=== PATIENT | male | born 1955 | race Caucasian/White ===

== ENCOUNTER 2019-07-20 09:41 | Outpatient (CLI) | payer MEDICARE, MEDICAID, SELFPAY ==
[2019-07-20 10:14] LABS: Basophils % 0.8 %; Eosinophils # 0.1 10^3/uL (0.0-0.8); Eosinophils % 3.1 %; Hematocrit 38.6 % (42.0-52.0); Hemoglobin 12.9 g/dL (11.7-16.6); Lymphocytes # 1.5 10^3/uL (0.8-4.8); Lymphocytes % 38.4 %; Mean Corpuscular HGB Conc 33.4 g/dL (30.0-36.0); Mean Corpuscular Hemoglobin 32.7 pg (28.0-34.0); Mean Platelet Volume 10.3 fL (7.4-10.4); Monocytes # 0.6 10^3/uL (0.2-0.9); Monocytes % 14.4 %; Neutrophils # 1.7 10^3/uL (1.8-7.7); Nucleated Red Blood Cells % 0 %; Platelet Count 72 10^3/cmm (130-400); Red Blood Count 3.94 10^6/uL (4.1-5.3); Red Cell Distribution Width 12.9 % (12.1-15.1); White Blood Count 3.8 10^3/uL (4.0-10.0)
[2019-07-20 10:31] LABS: Alanine Aminotransferase 53 U/L (0-41); Albumin Level 4.9 g/dL (3.5-5.2); Alkaline Phosphatase 41 IU/L (40-130); Anion Gap 15.4 (5-19); Aspartate Amino Transferase 58 U/L (0-40); Blood Urea Nitrogen 12 mg/dL (8-23); Calcium 9.9 mg/dL (8.5-10.5); Carbon Dioxide 26 mmol/L (22-29); Chloride 94 mmol/L (98-107); Globulin 2.8 g/dL (1.3-4.6); Glomerular Filtration Rate 51.2 mL/min (90-130); Glucose 140 mg/dL (65-115); Lactate Dehydrogenase 171 U/L (135-225); Potassium 4.4 mmol/L (3.5-5.1); Sodium 131 mmol/L (136-145); Total Bilirubin 0.7 mg/dL (0.15-1.2); Total Protein 7.7 g/dL (6.6-8.7)
--- NOTE | 2019-07-21 06:43 | ONC FU_ITS ---
Dr. Aguilera Patient Follow-Up Note Patient: Carrillo Kothari Unit #: [id number]: 1955 Dicatated By: Thompson Aguilera M.D.Date of Visit:Jul 20, 2019 Onc Med Follow-up/Prog Note Chief Complaint: Thrombocytopenia. History of Present Illness: This is a 64 year-old man with a moderately severe thrombocytopenia. He was seen here by Dr. uBrks on 03/24/2018 for new onset of thrombocytopenia. The available records included a CBC from 01/24/2018 which showed his platelet count low at 33,000. His other laboratory studies also showed mild elevation of the liver enzymes. His further evaluation included a repeat CBC which showed hemoglobin 13.9 g with hematocrit 40.0%. The red cell indices were borderline high. The white blood cell count was mildly decreased at 3700. Platelet count was moderately decreased at 87,000. Comprehensive metabolic profile at that time showed borderline renal function with BUN 16 and creatinine 1.4 mg/dL. The bilirubin and liver enzymes were normal. B12 and folate levels were normal. 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 His other medical illnesses include hyperlipidemia, GERD, and chronic anxiety. He does have a history of having undergone repair of abdominal aortic aneurysm. He has a history of smoking 2 packs of cigarettes daily for 30 years. He quit smoking in 2009. INTERIM HISTORY: He had further evaluation with CT abdomen/pelvis on 05/05/2018. The liver appeared normal on that study, and there was no evidence of splenomegaly. There was also no lymphadenopathy or other evidence of malignancy. With those findings, I had recommended observation/expectant management. He is seen for a follow-up visit. He has been feeling okay. He says his energy could be better. His ECOG score is 1. He has good appetite. He has no fever or night sweats. He says he has sinus drainage all the time. He has some cough with it. He does not complain of shortness of breath or chest pain. He has some acid reflux. He has no other GI or complaints. He has pain in both legs, the left worse than the right. He also has swelling. He does not complain of headache. He does feel dizzy at times. He has no focal neurologic symptoms. Medications: Aspirin 1 Tablet (of 81 mg) Oral daily, Atenolol 1 Tablet (of 25 mg) Oral daily, [facility] Fish Oil 2 Capsule (of 1000 mg) Oral b.i.d., Lisinopril-Hydrochlorothiazide 1 Tablet (of 20-12.5 mg) Oral daily, Multivitamin Men 1 Tablet Oral daily, [place]-3 Fatty Acids 2 Capsule (of 1000 mg) Oral b.i.d., Pantoprazole Sodium 1 Tablet (of 40 mg) Tablet, enteric coated Oral daily, Rosuvastatin Calcium 1 Tablet (of 20 mg) Oral daily, Tamsulosin HCl 1 (0.4 mg) Capsule Oral at bedtime, ZyrTEC Allergy 1 Tablet (of 10 mg) Oral daily Allergies: Codeine Review of Systems: Constitutional - His energy is fair. His appetite is good and his weight is stable. No fever, chills, hot flashes. He has some sweating at night. ECOG score is 1, ENMT - He has sinus congestion/drainage with a cough. No mouth sores. No sore throat or difficulty swallowing, Hematologic/Lymphatic - No abnormal bruising or bleeding, Respiratory - No shortness of breath. No pleuritic pain or hemoptysis, Cardiovascular - No angina pain. No palpitations, Gastrointestinal - No nausea or vomiting. His heartburn is managed well with Protonix. No diarrhea or constipation. No blood in the stool or black stools, Genitourinary (M) - No dysuria or hematuria. No urinary frequency. No urgency or incontinence, Musculoskeletal - He has some swelling and pain in his legs, mainly his left, Integumentary - No skin complications, Neurologic - No headache. He does feel dizzy at times. No numbness/paresthesias or other focal neurologic symptoms, Psychiatric - No anxiety or depression. No insomnia. Vital Signs: Performed on Jul 20, 2019 12:09 Height - 71.00 in Weight - 215.6 lbs (HIGH) BSA - 2.18 sq.m BMI - 30.07 (HIGH) Temperature - 97.6 F (LOW) Pulse - 63 /min Respiration - 17 /min BP - 131/70 mm(hg) O2 Sat - 98 % Pain - 5 Physical Examination: Constitutional - He looks pretty good generally, Eyes - Sclerae nonicteric. Conjunctivae clear, ENMT - No lesions noted in the oral cavity, Hematologic/Lymphatic - No cervical, clavicular, or axillary adenopathy, Respiratory - Lungs are clear with good air movement bilaterally, Cardiovascular - Heart rhythm is regular. There is no murmur, gallop, or rub noted, Abdomen - Mildly distended but soft. Liver is not enlarged. Spleen is not palpable. There is no abdominal mass or ascites noted. There is no inguinal adenopathy, Extremities - There are mild venous stasis changes bilaterally. There is just slight edema. Dorsalis pedis pulses are palpable bilaterally, Neurologic - No focal neurologic deficits noted. Lab/Imaging: Test performed on Jul 20, 2019 10:03 LDH (Total) 171 U/L Sodium 131 mmol/L Potassium 4.4 mmol/L Chloride 94 mmol/L CO2 26 mmol/L Anion Gap 15.4 BUN 12 mg/dL Creatinine 1.4 mg/dL Cr Clearance (Est) 74.71 mL/min eGFR 51.2 mL/min Glucose 140 mg/dL Calcium 9.9 mg/dL Protein, Total 7.7 g/dL Albumin 4.9 g/dL Globulin 2.8 g/dL Bilirubin, Total 0.7 mg/dL ALT (SGPT) 53 U/L AST (SGOT) 58 U/L Alkaline Phosphatase 41 IU/L WBC 3.8 10 3/uL RBC 3.94 10 6/uL HGB 12.9 g/dL HCT 38.6 % MCV 98.0 fL MCH 32.7 pg MCHC 33.4 g/dL RDW 12.9 % Platelet Count 72 10 3/cmm MPV 10.3 fL Neutrophils 1.7 10 3/uL Lymphocytes 1.5 10 3/uL Monocytes 0.6 10 3/uL Eosinophils 0.1 10 3/uL Basophils 0.0 10 3/uL Neutrophil % 43.0 % Lymphocyte % 38.4 % Monocyte % 14.4 % Eosinophil % 3.1 % Basophils % 0.8 % Impression: 1. Patient with moderately severe thrombocytopenia. He also has had borderline low to mildly decreased white blood cell count and borderline macrocytic red blood cell indices. The most likely causes for this would be liver disease/hypersplenism or myelodysplastic syndrome. 2. He had mildly elevated liver enzymes, but with no abnormalities noted in the liver or spleen by ultrasound or by CT scan. 3. 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 4. There was CT evidence of a small right middle lobe pulmonary nodule. His other medical illnesses include: 5. Hyperlipidemia. 6. GERD. 7. He has chronic anxiety. 8. He has had previous abdominal aortic aneurysm repair. In the absence of any evidence of liver disease/hypersplenism, the most likely cause for the low blood counts would be a myelodysplastic syndrome. However, during follow-up his blood counts have remained stable and his clinical status also has been stable. He does have some ongoing problems related to venous stasis. Plan: He will continue on observation/expectant management. I will see him again in 6 months. In the meantime, I did give him the option to see physical therapy for the venous insufficiency. Signed By: Thompson Aguilera M.D. <<Signature on File>>
== END 2019-07-20 09:42 | disposition home or self-care (01) ==
LOC: ONCMED 09:46
PROVIDERS: Family Provider Family Medicine; PCP Family Medicine; Visit Provider Internal Medicine Medical Oncology
DX: D69.6 Thrombocytopenia, unspecified (principal); H54.8 Legal blindness, as defined in USA; H35.52 Pigmentary retinal dystrophy; E78.5 Hyperlipidemia, unspecified; K21.9 Gastro-esophageal reflux disease without esophagitis; F41.9 Anxiety disorder, unspecified; R91.8 Other nonspecific abnormal finding of lung field; I87.8 Other specified disorders of veins; Z79.82 Long term (current) use of aspirin; Z79.899 Other long term (current) drug therapy; Z87.891 Personal history of nicotine dependence
CPT/HCPCS: 36415; 80053; 83615; 85025; G0463

== ENCOUNTER 2019-12-21 09:45 | Outpatient (CLI) | payer MEDICARE, MEDICAID, SELFPAY ==
[2019-12-21 10:22] LABS: Basophils % 0.5 %; Eosinophils # 0.1 10^3/uL (0.0-0.8); Eosinophils % 2.4 %; Hematocrit 36.9 % (42.0-52.0); Hemoglobin 12.9 g/dL (11.7-16.6); Lymphocytes # 1.4 10^3/uL (0.8-4.8); Lymphocytes % 34.7 %; Mean Corpuscular Volume 94.4 fL (80-94); Mean Platelet Volume 9.4 fL (7.4-10.4); Monocytes # 0.6 10^3/uL (0.2-0.9); Monocytes % 14.4 %; Neutrophils # 1.95 10^3/uL (1.8-7.7); Neutrophils % 47.8 %; Nucleated Red Blood Cells % 0 %; Platelet Count 77 10^3/cmm (130-400); Red Blood Count 3.91 10^6/uL (4.1-5.3); Red Cell Distribution Width 12.7 % (12.1-15.1); White Blood Count 4.1 10^3/uL (4.0-10.0)
[2019-12-21 10:35] LABS: Alanine Aminotransferase 51 U/L (0-41); Albumin Level 5.2 g/dL (3.5-5.2); Alkaline Phosphatase 38 IU/L (40-130); Anion Gap 14.3 (5-19); Aspartate Amino Transferase 55 U/L (0-40); Blood Urea Nitrogen 19 mg/dL (8-23); Calcium 10.1 mg/dL (8.5-10.5); Carbon Dioxide 26 mmol/L (22-29); Chloride 91 mmol/L (98-107); Globulin 2.4 g/dL (1.3-4.6); Glomerular Filtration Rate 47.3 mL/min (90-130); Glucose 117 mg/dL (65-115); Lactate Dehydrogenase 167 U/L (135-225); Osmolality Calculated 262 mOsm/kg (285-295); Potassium 4.3 mmol/L (3.5-5.1); Sodium 127 mmol/L (136-145); Total Bilirubin 0.7 mg/dL (0.15-1.2); Total Protein 7.6 g/dL (6.6-8.7)
--- NOTE | 2019-12-25 12:07 | ONC FU_ITS ---
Dr. Aguilera Patient Follow-Up Note Patient: Carrillo Kothari Unit #: [id number]: 1955 Dicatated By: Thompson Aguilera M.D.Date of Visit:Dec 21, 2019 Onc Med Follow-up/Prog Note Chief Complaint: Thrombocytopenia. History of Present Illness: This is a 64 year-old man with a moderately severe thrombocytopenia. He was seen here by Dr. Burks on 03/24/2018 for new onset of thrombocytopenia. The available records included a CBC from 01/24/2018 which showed his platelet count low at 33,000. His other laboratory studies also showed mild elevation of the liver enzymes. His repeat CBC showed hemoglobin 13.9 g with hematocrit 40.0%. The red cell indices were borderline high. The white blood cell count was mildly decreased at 3700. Platelet count was moderately decreased at 87,000. Comprehensive metabolic profile at that time showed borderline renal function with BUN 16 and creatinine 1.4 mg/dL. The bilirubin and liver enzymes were normal. B12 and folate levels were normal. He had further evaluation with CT abdomen/pelvis on 05/05/2018. The liver appeared normal on that study, and there was no evidence of splenomegaly. There was also no lymphadenopathy or other evidence of malignancy. With those findings, I had recommended observation/expectant management. 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 His other medical illnesses include hyperlipidemia, GERD, and chronic anxiety. He does have a history of having undergone repair of abdominal aortic aneurysm. He has a history of smoking 2 packs of cigarettes daily for 30 years. He quit smoking in 2009. INTERIM HISTORY: He is seen for a follow-up visit. He has been feeling pretty good generally. His energy is about the same. He says it could be better. He has limited activity due to his visual impairment. ECOG score is 1. He has good appetite. He has no fever or night sweats. He has no shortness of breath, cough, or chest pain. He clearly has no GI or complaints. He has pain in his knees, but no other joint or bone pain. He has occasional headache, attributable to allergies, and he sometimes has dizziness. He has no focal neurologic symptoms. Medications: Aspirin 1 Tablet (of 81 mg) Oral daily, Atenolol 1 Tablet (of 25 mg) Oral daily, [facility] Fish Oil 2 Capsule (of 1000 mg) Oral b.i.d., Lisinopril-Hydrochlorothiazide 1 Tablet (of 20-12.5 mg) Oral daily, Multivitamin Men 1 Tablet Oral daily, [place]-3 Fatty Acids 2 Capsule (of 1000 mg) Oral b.i.d., Pantoprazole Sodium 1 Tablet (of 40 mg) Tablet, enteric coated Oral daily, Rosuvastatin Calcium 1 Tablet (of 20 mg) Oral daily, Tamsulosin HCl 1 (0.4 mg) Capsule Oral at bedtime, ZyrTEC Allergy 1 Tablet (of 10 mg) Oral daily Allergies: Codeine Review of Systems: Constitutional - His energy is the same. He says it could be better. Activity is limited due to his visual impairment. He has good appetite. He has no fever or night sweats. ECOG score is 1, ENMT - He always has sinus drainage. No mouth sores. No sore throat or difficulty swallowing, Hematologic/Lymphatic - No abnormal bruising or bleeding, Respiratory - No shortness of breath. No cough. No pleuritic pain or hemoptysis, Cardiovascular - No angina pain. No palpitations, Gastrointestinal - No nausea or vomiting. His acid reflux is adequately managed with medication. No diarrhea or constipation. No blood in the stool or black stools, Genitourinary (M) - No dysuria or hematuria. No urinary frequency. No urgency or incontinence, Musculoskeletal - He has pain in his knees. No other joint or bone pain, Integumentary - , Neurologic - He occasionally has headache and he sometimes has dizziness. No numbness or tingling. No other focal neurologic symptoms, Psychiatric - He has some depression. He does not sleep well. Vital Signs: Blood pressure 134/82, pulse 52, respirations 20, temp 98.0 degrees, oxygen saturation 100%. Weight is 214 pounds. Physical Examination: Constitutional - He looks pretty good generally, Eyes - Sclerae nonicteric. Conjunctivae clear, ENMT - No lesions noted in the oral cavity, Hematologic/Lymphatic - No cervical, clavicular, or axillary adenopathy, Respiratory - Lungs are clear with good air movement bilaterally, Cardiovascular - Heart rhythm is regular. There is no murmur, gallop, or rub noted, Abdomen - Mildly distended. Liver is not enlarged. Spleen is not palpable. There is no abdominal mass or ascites noted. There is no inguinal adenopathy, Extremities - No edema, Neurologic - No focal neurologic deficits noted. Lab/Imaging: Test performed on Dec 21, 2019 10:00 LDH (Total) 167 U/L Sodium 127 mmol/L Potassium 4.3 mmol/L Chloride 91 mmol/L CO2 26 mmol/L Anion Gap 14.3 BUN 19 mg/dL Creatinine 1.5 mg/dL Cr Clearance (Est) 69.7300 mL/min eGFR 47.3 mL/min Glucose 117 mg/dL Calcium 10.1 mg/dL Protein, Total 7.6 g/dL Albumin 5.2 g/dL Globulin 2.4 g/dL Bilirubin, Total 0.7 mg/dL ALT (SGPT) 51 U/L AST (SGOT) 55 U/L Alkaline Phosphatase 38 IU/L WBC 4.1 10 3/uL RBC 3.91 10 6/uL HGB 12.9 g/dL HCT 36.9 % MCV 94.4 fL MCH 33.0 pg MCHC 35.0 g/dL RDW 12.7 % Platelet Count 77 10 3/cmm MPV 9.4 fL Neutrophils 1.95 10 3/uL Lymphocytes 1.4 10 3/uL Monocytes 0.6 10 3/uL Eosinophils 0.1 10 3/uL Basophils 0.0 10 3/uL Neutrophil % 47.8 % Lymphocyte % 34.7 % Monocyte % 14.4 % Eosinophil % 2.4 % Basophils % 0.5 % NRBC % 0 % Impression: 1. Patient with moderately severe thrombocytopenia. He also has had borderline low to mildly decreased white blood cell count and borderline macrocytic red blood cell indices. The most likely causes for this would be liver disease/hypersplenism or myelodysplastic syndrome. 2. He had mildly elevated liver enzymes, but with no abnormalities noted in the liver or spleen by ultrasound or by CT scan. 3. 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 4. There was CT evidence of a small right middle lobe pulmonary nodule. His other medical illnesses include: 5. Hyperlipidemia. 6. GERD. 7. He has chronic anxiety. 8. He has had previous abdominal aortic aneurysm repair. As his other blood counts were normal and he was not overtly symptomatic, I had recommended observation/expectant management. Thus far during follow-up his blood counts and clinical status have remained stable. Plan: He continues observation/expectant management. I will see him again in 6 months. Signed By: Thompson Aguilera M.D. <<Signature on File>>
== END 2019-12-21 09:46 | disposition home or self-care (01) ==
LOC: ONCMED 09:50
PROVIDERS: Family Provider Family Medicine; PCP Family Medicine; Visit Provider Internal Medicine Medical Oncology
DX: D69.6 Thrombocytopenia, unspecified (principal); R94.5 Abnormal results of liver function studies; H35.52 Pigmentary retinal dystrophy; R91.1 Solitary pulmonary nodule; E78.5 Hyperlipidemia, unspecified; K21.9 Gastro-esophageal reflux disease without esophagitis; F41.9 Anxiety disorder, unspecified; Z86.79 Personal history of other diseases of the circulatory system
CPT/HCPCS: 80053; 83615; 85025; G0463

== ENCOUNTER 2020-06-20 10:25 | Outpatient (CLI) | payer MEDICARE, MEDICAID, SELFPAY ==
[2020-06-20 11:03] LABS: Basophils % 0.8 %; Eosinophils # 0.1 10^3/uL (0.0-0.8); Eosinophils % 1.9 %; Hematocrit 38.7 % (42.0-52.0); Lymphocytes # 1.4 10^3/uL (0.8-4.8); Mean Corpuscular HGB Conc 33.6 g/dL (30.0-36.0); Mean Corpuscular Hemoglobin 31.3 pg (28.0-34.0); Monocytes # 0.5 10^3/uL (0.2-0.9); Monocytes % 12.8 %; Neutrophils # 1.71 10^3/uL (1.8-7.7); Neutrophils % 46.5 %; Nucleated Red Blood Cells % 0 %; Platelet Count 71 10^3/cmm (130-400); Red Blood Count 4.16 10^6/uL (4.1-5.3); Red Cell Distribution Width 13.2 % (12.1-15.1); White Blood Count 3.7 10^3/uL (4.0-10.0)
[2020-06-20 11:14] LABS: Alanine Aminotransferase 47 U/L (0-41); Albumin Level 4.7 g/dL (3.5-5.2); Alkaline Phosphatase 46 IU/L (40-130); Anion Gap 14.4 (5-19); Aspartate Amino Transferase 45 U/L (0-40); Blood Urea Nitrogen 14 mg/dL (8-23); Calcium 9.7 mg/dL (8.5-10.5); Carbon Dioxide 28 mmol/L (22-29); Chloride 94 mmol/L (98-107); Globulin 2.6 g/dL (1.3-4.6); Glucose 125 mg/dL (65-115); Lactate Dehydrogenase 159 U/L (135-225); Osmolality Calculated 276 mOsm/kg (285-295); Potassium 4.4 mmol/L (3.5-5.1); Sodium 132 mmol/L (136-145); Total Bilirubin 0.6 mg/dL (0.15-1.2); Total Protein 7.3 g/dL (6.6-8.7)
--- NOTE | 2020-06-23 17:33 | ONC FU_ITS ---
Dr. Aguilera Patient Follow-Up Note Patient: Carrillo Kothari Unit #: [id number]: 1955 Dicatated By: Thompson Aguilera M.D.Date of Visit:Jun 20, 2020 Onc Med Follow-up/Prog Note Chief Complaint: Thrombocytopenia. History of Present Illness: This is a 65 year-old man with a moderately severe thrombocytopenia. He was seen here by Dr. Burks on 03/24/2018 for new onset of thrombocytopenia. The available records included a CBC from 01/24/2018 which showed his platelet count low at 33,000. His other laboratory studies also showed mild elevation of the liver enzymes. His repeat CBC showed hemoglobin 13.9 g with hematocrit 40.0%. The red cell indices were borderline high. The white blood cell count was mildly decreased at 3700. Platelet count was moderately decreased at 87,000. Comprehensive metabolic profile at that time showed borderline renal function with BUN 16 and creatinine 1.4 mg/dL. The bilirubin and liver enzymes were normal. B12 and folate levels were normal. He had further evaluation with CT abdomen/pelvis on 05/05/2018. The liver appeared normal on that study, and there was no evidence of splenomegaly. There was also no lymphadenopathy or other evidence of malignancy. With those findings, I had recommended observation/expectant management. During follow-up, his platelet count and clinical status have remained stable. 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 His other medical illnesses include hyperlipidemia, GERD, and chronic anxiety. He does have a history of having undergone repair of abdominal aortic aneurysm. He has a history of smoking 2 packs of cigarettes daily for 30 years. He quit smoking in 2009. INTERIM HISTORY: He is seen for a scheduled visit. He has been feeling pretty good. He has limited activity due to his visual impairment. ECOG score is 2. Appetite is good. He has no fever or night sweats. He has sinus drainage and some cough, presumed to be allergy related. He sometimes has shortness of breath. He does not complain of chest pain. He has no GI or complaints. He has joint pain, particularly in his knees and elbows, but that is not new. He has occasional sinus headache. He occasionally has dizziness. He does not have any focal neurologic symptoms, but he does report having some muscle cramps in his feet. Medications: Aspirin 1 Tablet (of 81 mg) Oral daily, [employer] Fish Oil 2 Capsule (of 1000 mg) Oral b.i.d., Lisinopril-Hydrochlorothiazide 1 Tablet (of 20-12.5 mg) Oral daily, Multivitamin Men 1 Tablet Oral daily, [place]-3 Fatty Acids 2 Capsule (of 1000 mg) Oral b.i.d., Pantoprazole Sodium 1 Tablet (of 40 mg) Tablet, enteric coated Oral daily, Rosuvastatin Calcium 1 Tablet (of 20 mg) Oral daily, Tamsulosin HCl 1 (0.4 mg) Capsule Oral at bedtime, ZyrTEC Allergy 1 Tablet (of 10 mg) Oral daily Allergies: Codeine Vital Signs: Performed on Jun 20, 2020 12:27 Height - 71.00 in Weight - 211.2 lbs (LOW) BSA - 2.16 sq.m BMI - 29.46 Temperature - 96.4 F (LOW) Pulse - 75 /min Respiration - 17 /min BP - 134/80 mm(hg) O2 Sat - 99 % Pain - 6 Physical Examination: Constitutional - He looks pretty good generally, Eyes - Sclerae nonicteric. Conjunctivae clear, ENMT - No lesions noted in the oral cavity, Hematologic/Lymphatic - No cervical, clavicular, or axillary adenopathy, Respiratory - Lungs are clear with good air movement bilaterally, Cardiovascular - Heart rhythm is regular. There is no murmur, gallop, or rub noted, Abdomen - Soft. Liver is not enlarged. Spleen is not palpable. There is no abdominal mass or ascites noted. There is no inguinal adenopathy, Extremities - No edema, Neurologic - No focal neurologic deficits noted. Lab/Imaging: Test performed on Jun 20, 2020 10:43 LDH (Total) 159 U/L Sodium 132 mmol/L Potassium 4.4 mmol/L Chloride 94 mmol/L CO2 28 mmol/L Anion Gap 14.4 BUN 14 mg/dL Creatinine 1.4 mg/dL Cr Clearance (Est) 72.23 mL/min eGFR 51.0 mL/min Glucose 125 mg/dL Osmolality - Calculated 276 mOsm/kg Calcium 9.7 mg/dL Protein, Total 7.3 g/dL Albumin 4.7 g/dL Globulin 2.6 g/dL Bilirubin, Total 0.6 mg/dL ALT (SGPT) 47 U/L AST (SGOT) 45 U/L Alkaline Phosphatase 46 IU/L WBC 3.7 10 3/uL RBC 4.16 10 6/uL HGB 13.0 g/dL HCT 38.7 % MCV 93.0 fL MCH 31.3 pg MCHC 33.6 g/dL RDW 13.2 % Platelet Count 71 10 3/cmm MPV 10.0 fL Neutrophils 1.71 10 3/uL Lymphocytes 1.4 10 3/uL Monocytes 0.5 10 3/uL Eosinophils 0.1 10 3/uL Basophils 0.0 10 3/uL Neutrophil % 46.5 % Lymphocyte % 38.0 % Monocyte % 12.8 % Eosinophil % 1.9 % Basophils % 0.8 % NRBC % 0 % Problem List: 1. Moderately severe thrombocytopenia. 2. 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 3. Hyperlipidemia. 4. GERD. 5. He has chronic anxiety. 6. He has had previous abdominal aortic aneurysm repair. Problems Addressed with this Encounter and Plan: Moderately severe thrombocytopenia. He also has had borderline low to mildly decreased white blood cell count and borderline macrocytic red blood cell indices. I felt that the most likely causes for this would be liver disease/hypersplenism or myelodysplastic syndrome. He had mildly elevated liver enzymes, but with no abnormalities noted in the liver or spleen by ultrasound or by CT scan. As he was not overtly symptomatic, observation/expectant management was recommended. Thus far during follow-up a specific diagnosis has not been determined, but his blood counts and clinical status have remained stable. His chemistry profile continues to show slightly elevated liver enzymes. As such, I would like to repeat an ultrasound of the liver/spleen. I also want to make sure we have checked serum iron studies. He can otherwise continue on observation/symptomatic management. I will see him again in 6 months. Signed By: Thompson Aguilera M.D. <<Signature on File>>
== END 2020-06-20 10:26 | disposition home or self-care (01) ==
LOC: ONCMED 10:30
PROVIDERS: Family Provider Family Medicine; PCP Family Medicine; Visit Provider Internal Medicine Medical Oncology
DX: D69.6 Thrombocytopenia, unspecified (principal)
CPT/HCPCS: 80053; 83615; 85025; G0463

== ENCOUNTER 2020-07-18 10:02 | Outpatient (CLI) | payer MEDICARE, MEDICAID, SELFPAY ==
--- NOTE | 2020-07-18 10:17 | US_ITS ---
WS: [id number] RIGHT UPPER QUADRANT ULTRASOUND HISTORY: ELEVATED LIVER ENZYMES COMPARISON: 03/03/2018 Liver: 17.0 cm in length. Enlarged liver. Coarsened echotexture with no mass or bile duct dilatation. Gallbladder: Normally distended gallbladder with stones. No pericholecystic fluid or gallbladder wall thickening. CBD: 0.3 cm Pancreas: Not visualized. Right kidney: 12.0 cm in length. Normal size and echogenicity. No hydronephrosis or mass. Aorta and IVC: Unremarkable abdominal aorta and IVC. No ascites. US/US gall bladder [id number] IMPRESSION: 1. Cholelithiasis without acute cholecystitis. 2. Moderate hepatomegaly with moderate steatosis. 3. Pancreas is not visualized.
== END 2020-07-18 10:03 | disposition home or self-care (01) ==
LOC: RAD 10:07
PROVIDERS: PCP Nurse Practitioner Family; Visit Provider Internal Medicine Medical Oncology
DX: R74.8 Abnormal levels of other serum enzymes (principal); R16.0 Hepatomegaly, not elsewhere classified; K76.0 Fatty (change of) liver, not elsewhere classified; K80.20 Calculus of gallbladder without cholecystitis without obstruction
CPT/HCPCS: 76705

== ENCOUNTER 2020-12-19 09:20 | Outpatient (CLI) | payer MEDICARE, MEDICAID, SELFPAY ==
[2020-12-19 10:13] LABS: Basophils % 0.6 %; Eosinophils # 0.2 10^3/uL (0.0-0.8); Eosinophils % 4.6 %; Hematocrit 38.3 % (42.0-52.0); Hemoglobin 12.7 g/dL (11.7-16.6); Lymphocytes # 1.2 10^3/uL (0.8-4.8); Lymphocytes % 34.8 %; Mean Corpuscular HGB Conc 33.2 g/dL (30.0-36.0); Mean Corpuscular Hemoglobin 30.2 pg (28.0-34.0); Mean Corpuscular Volume 91.2 fL (80-94); Mean Platelet Volume 10.1 fL (7.4-10.4); Monocytes # 0.5 10^3/uL (0.2-0.9); Monocytes % 13.3 %; Neutrophils % 46.4 %; Nucleated Red Blood Cells % 0 %; Platelet Count 95 10^3/cmm (130-400); Red Cell Distribution Width 13.2 % (12.1-15.1); White Blood Count 3.5 10^3/uL (4.0-10.0)
[2020-12-19 10:45] LABS: Alanine Aminotransferase 41 U/L (0-41); Albumin Level 4.5 g/dL (3.5-5.2); Alkaline Phosphatase 42 IU/L (40-130); Anion Gap 17.4 (5-19); Aspartate Amino Transferase 47 U/L (0-40); Blood Urea Nitrogen 9 mg/dL (8-23); Calcium 9.4 mg/dL (8.5-10.5); Carbon Dioxide 27 mmol/L (22-29); Chloride 94 mmol/L (98-107); Ferritin 32 ng/mL (30-400); Globulin 2.6 g/dL (1.3-4.6); Glomerular Filtration Rate 55.6 mL/min (90-130); Glucose 106 mg/dL (65-115); Iron 64 ug/dL (59-158); Lactate Dehydrogenase 159 U/L (135-225); Osmolality Calculated 277 mOsm/kg (285-295); Percent Saturation 12.5 % (20-50); Potassium 4.4 mmol/L (3.5-5.1); Sodium 134 mmol/L (136-145); Total Bilirubin 0.5 mg/dL (0.15-1.2); Total Iron Binding Capacity 508 mcg/dl; Total Protein 7.1 g/dL (6.6-8.7); Unsaturated Iron Binding 444 ug/dL (112-347)
--- NOTE | 2020-12-22 16:53 | ONC FU_ITS ---
Dr. Aguilera Patient Follow-Up Note Patient: Carrillo Kothari Unit #: [id number]: [id number] Dicatated By: Thompson Aguilera M.D.Date of Visit:Dec 19, 2020 Onc Med Follow-up/Prog Note Chief Complaint: Thrombocytopenia. History of Present Illness: This is a 65 year-old man with a moderately severe thrombocytopenia. He was seen here by Dr. Burks on 03/24/2018 for new onset of thrombocytopenia. The available records included a CBC from 01/24/2018 which showed his platelet count low at 33,000. His other laboratory studies also showed mild elevation of the liver enzymes. His repeat CBC showed hemoglobin 13.9 g with hematocrit 40.0%. The red cell indices were borderline high. The white blood cell count was mildly decreased at 3700. Platelet count was moderately decreased at 87,000. Comprehensive metabolic profile at that time showed borderline renal function with BUN 16 and creatinine 1.4 mg/dL. The bilirubin and liver enzymes were normal. B12 and folate levels were normal. He had further evaluation with CT abdomen/pelvis on 05/05/2018. The liver appeared normal on that study, and there was no evidence of splenomegaly. There was also no lymphadenopathy or other evidence of malignancy. With those findings, I had recommended observation/expectant management. During follow-up, his platelet count and clinical status have remained stable. 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 His other medical illnesses include hyperlipidemia, GERD, and chronic anxiety. He does have a history of having undergone repair of abdominal aortic aneurysm. He has a history of smoking 2 packs of cigarettes daily for 30 years. He quit smoking in 2009. INTERIM HISTORY: At his follow-up visit on 06/20/2020 he appeared stable clinically. His liver enzymes, though, remained slightly elevated. He had further evaluation with right upper quadrant abdominal ultrasound on 07/18/2020. It showed cholelithiasis without evidence of acute cholecystitis. There was noted to be moderate hepatomegaly with moderate steatosis. He is seen for a follow-up visit. He says his energy has not been the best. He does have limited activity, though mainly due to his visual impairment. His ECOG score is 2. He has good appetite. He has no fever or night sweats. He has some allergy related sinus symptoms. He has a dry cough. He does not complain of shortness of breath or chest pain. He has no GI or complaints. He does have some joint pain, mainly in his knees and elbows. He occasionally has headache and he sometimes has dizziness. He very occasionally has numbness in his hands. He is not had abnormal bruising or bleeding. Medications: Aspirin 1 Tablet (of 81 mg) Oral daily, [facility] Fish Oil 2 Capsule (of 1000 mg) Oral b.i.d., Lisinopril-Hydrochlorothiazide 1 Tablet (of 20-12.5 mg) Oral daily, Multivitamin Men 1 Tablet Oral daily, Odell-3 Fatty Acids 2 Capsule (of 1000 mg) Oral b.i.d., Pantoprazole Sodium 1 Tablet (of 40 mg) Tablet, enteric coated Oral daily, Rosuvastatin Calcium 1 Tablet (of 20 mg) Oral daily, Tamsulosin HCl 1 (0.4 mg) Capsule Oral at bedtime, ZyrTEC Allergy 1 Tablet (of 10 mg) Oral daily Allergies: Codeine Vital Signs: Performed on Dec 19, 2020 14:03 Height - 71.00 in Weight - 210.2 lbs (LOW) BSA - 2.15 sq.m BMI - 29.32 Temperature - 97.6 F (LOW) Pulse - 89 /min Respiration - 18 /min BP - 108/73 mm(hg) O2 Sat - 98 % Pain - 6 Fatigue - 7 Physical Examination: Constitutional - He looks pretty good generally, Eyes - Sclerae nonicteric. Conjunctivae clear, ENMT - No lesions noted in the oral cavity, Hematologic/Lymphatic - No cervical, clavicular, or axillary adenopathy, Respiratory - Lungs are clear with good air movement bilaterally, Cardiovascular - Heart rhythm is regular. There is no murmur, gallop, or rub noted, Abdomen - Soft. Liver is not enlarged. Spleen is not palpable. There is no abdominal mass or ascites noted. There is no inguinal adenopathy, Extremities - No edema, Neurologic - No focal neurologic deficits noted. Lab/Imaging: Test performed on Dec 19, 2020 09:40 Ferritin 32 ng/mL Iron 64 mcg/dL LDH (Total) 159 U/L Sodium 134 mmol/L Iron Binding Capacity (TIBC) 508 mcg/dl Potassium 4.4 mmol/L % Iron Saturation 12.5 % Chloride 94 mmol/L CO2 27 mmol/L UIBC 444 mcg/dL Anion Gap 17.4 BUN 9 mg/dL Creatinine 1.3 mg/dL Cr Clearance (Est) 77.42 mL/min eGFR 55.6 mL/min Glucose 106 mg/dL Osmolality - Calculated 277 mOsm/kg Calcium 9.4 mg/dL Protein, Total 7.1 g/dL Albumin 4.5 g/dL Globulin 2.6 g/dL Bilirubin, Total 0.5 mg/dL ALT (SGPT) 41 U/L AST (SGOT) 47 U/L Alkaline Phosphatase 42 IU/L WBC 3.5 10 3/uL RBC 4.20 10 6/uL HGB 12.7 g/dL HCT 38.3 % MCV 91.2 fL MCH 30.2 pg MCHC 33.2 g/dL RDW 13.2 % Platelet Count 95 10 3/cmm MPV 10.1 fL Neutrophils 1.60 10 3/uL Lymphocytes 1.2 10 3/uL Monocytes 0.5 10 3/uL Eosinophils 0.2 10 3/uL Basophils 0.0 10 3/uL Neutrophil % 46.4 % Lymphocyte % 34.8 % Monocyte % 13.3 % Eosinophil % 4.6 % Basophils % 0.6 % NRBC % 0 % Problem List: 1. Moderately severe thrombocytopenia. 2. 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 3. Hyperlipidemia. 4. GERD. 5. He has chronic anxiety. 6. He has had previous abdominal aortic aneurysm repair. Problems Addressed with this Encounter and Plan: Patient with moderately severe thrombocytopenia. He also has had borderline low to mildly decreased white blood cell count and borderline macrocytic red blood cell indices. I felt that the most likely causes for this would be liver disease/hypersplenism or myelodysplastic syndrome. During follow-up he has had mildly elevated liver enzymes, but with no abnormalities noted in the liver or spleen on his initial CT scan. As he was not overtly symptomatic, expectant management was recommended. During follow-up his blood counts and clinical status have remained stable. He has had mildly elevated liver enzymes. His recent right upper quadrant abdominal ultrasound did show evidence of hepatomegaly with moderate steatosis. As such, it does appear that underlying liver disease is the most likely cause for the thrombocytopenia, though I cannot be certain of that. Nonetheless, as long as his blood counts and clinical status remains stable, he can continue on expectant management. At this point he is advised to continue his regular follow-up with Bryanna Sarabia. I would recommend repeating blood counts at least every 6 months and he can be seen here again if there are any significant changes. Signed By: Thompson Aguilera M.D. <<Signature on File>>
== END 2020-12-19 09:21 | disposition home or self-care (01) ==
LOC: ONCMED 09:29
PROVIDERS: PCP Nurse Practitioner Family; Visit Provider Internal Medicine Medical Oncology
DX: D69.6 Thrombocytopenia, unspecified (principal); Q14.1 Congenital malformation of retina; E78.5 Hyperlipidemia, unspecified; K21.9 Gastro-esophageal reflux disease without esophagitis; F41.9 Anxiety disorder, unspecified; I71.4 Abdominal aortic aneurysm, without rupture; Z79.899 Other long term (current) drug therapy
CPT/HCPCS: 36415; 80053; 82728; 83540; 83550; 83615; 85025; 99214

== ENCOUNTER → 2024-12-30 10:53 | Outpatient (BNVA) | payer MEDICARE, MEDICAID, SELFPAY | PROVIDERS: PCP Nurse Practitioner Family; Visit Provider Nurse Practitioner Family | DX: I10 Essential (primary) hypertension (principal); Z12.5 Encounter for screening for malignant neoplasm of prostate; N18.9 Chronic kidney disease, unspecified | CPT/HCPCS: 80053; 80061; 84443; 85025; G0103 ==

== ENCOUNTER → 2025-02-03 11:05 | Outpatient (BNVA) | payer MEDICARE, MEDICAID, SELFPAY | PROVIDERS: PCP Nurse Practitioner Family; Visit Provider Nurse Practitioner Family | DX: E87.1 Hypo-osmolality and hyponatremia (principal) | CPT/HCPCS: 80053 ==

== ENCOUNTER → 2025-03-10 10:08 | Outpatient (BNVA) | payer MEDICARE, MEDICAID, SELFPAY | PROVIDERS: PCP Nurse Practitioner Family; Visit Provider Nurse Practitioner Family | DX: E87.1 Hypo-osmolality and hyponatremia (principal) | CPT/HCPCS: 80048 ==